=== PATIENT | female | born 1975 | race African-American/Black ===

== ENCOUNTER 2016-05-18 10:54 | Emergency (ER) | payer OTHER ==
[~2016-05-18] VITALS: Ht 154.9 cm; Wt 72.6 kg
[~2016-05-18 10:54] MED LIST: BACTRIM DS 8001 TAB PO; KETOROLAC TROME10 M1 PO; PYRIDIUM100 MG PO; ZOFRAN4 M2 PO; ZYRTEC10 M3 PO
[2016-05-18 12:38] LABS: ABSOLUTE BASOPHIL COUNT 0 /CUMM (0.0-0.2); ABSOLUTE EOSINOPHIL COUNT 0 /CUMM (0.0-0.7); ABSOLUTE GRANULOCYTE CT 16.5 /CUMM (1.4-6.5); ABSOLUTE LYMPH COUNT 1.4 /CUMM (1.2-3.4); ABSOLUTE MONOCYTE COUNT 0.5 /CUMM (0.10-0.60); BASOPHIL % 0.1 % (0.0-2.0); EOSINOPHIL % 0 % (0-5); GRANULOCYTE % 89.6 % (42.2-75.2); HEMATOCRIT 42.2 % (37-47); MEAN CORPUSCULAR HGB 30.5 PG (27.0-31.0); MEAN CORPUSCULAR HGB CONC 33.5 G/DL (33.0-37.0); MEAN CORPUSCULAR VOLUME 91.2 FL (81.0-99.0); MEAN PLATELET VOLUME 14.4 FL (7.4-10.4); PLATELET COUNT 226 /CUMM (130-400); RBC DISTRIBUTION WIDTH 13.1 % (11.5-14.5); RED BLOOD CELL CT 4.62 /CUMM (4.20-5.40); WHITE BLOOD CELL COUNT 18.5 /CUMM (4.8-10.8)
--- NOTE | 2016-05-18 15:15 | ED GI/GU/ABDOMINAL COMPLAINT ---
History of Present Illness General Chief Complaint: Female Urogenital Problems Stated Complaint: MISCARRIAGE Source: patient, family Exam Limitations: no limitations Vital Signs & Intake/Output Vital Signs & Intake/Output Vital Signs Date Time Temp Pulse Resp B/P Pulse O2 O2 Flow FiO2 Ox Delivery Rate 05/18 1354 99.4 68 16 121/69 100 Room Air 05/18 1101 98.1 98 18 138/74 100 Room Air Allergies Coded Allergies: oxycodone (VOMITING 09/29/15) Reconcile Medications Cetirizine HCl (Zyrtec) 10 MG TABLET 1 TAB PO DAILY ALLERGIES (Reported) Ketorolac Tromethamine 10 MG TABLET 1 TAB PO TID PRN HEADACHE Ondansetron (Zofran Odt) 4 MG TAB.RAPDIS 1 TAB SL TID PRN nausea/vomiting Ondansetron HCl (Zofran) 4 MG TABLET 1 TAB PO Q6-8P PRN NAUSEA Triage Note: 41 YEAR OLD FEMALE TO [facility] FROM HER HOME WITH COMPLAINTS OF ABD CRAMPING. PT WAS 10 WEEKS AND FOUND OUT YESTERDAY THAT SHE MISCARRIED AT ABOUT 7 WEEKS, WAS PRESCRIBED MISOPROSTOL AND STARTED WITH ABD PAIN AND CRAMPING AROUND 0200 THIS AM, STATES THAT PAIN HAS BEEN INCREASING AND THAT SHE HAS REALLY NOT BLED ALOT Triage Nurses Notes Reviewed? yes ? y Is pt currently ? No HPI: Ms. Rasmussen is a 41 yo f with no significant past medical history presenting to the emergency department for lower abdominal pain. Patient states she is 10 weeks and went to her CRANE SERVICE TECHNICIAN yesterday for abdominal cramping. Was told that she had no movements or heartbeat and likely she miscarried approximately 2-3 weeks ago. Patient was given misoprostal 4 tablets which she inserted into her vaginal canal around 11 PM last night. Around 2 AM the patient woke up with severe lower abdominal cramping. She denies any fever or chills. She endorses nausea and vomiting. No diarrhea. She says this feels like a very bad menstrual cycle. Patient endorses mild vaginal spotting. She is not told she would be having any pain or bleeding. She didn't know what to expect. Patient's previous was an ectopic . This was not related to an feature fertilization, both pregnancies were through natural intercourse. (ROLA BLAKELY,LES) Past History Travel History Traveled to [place] past 21 day No Medical History Any Pertinent Medical History? see below for history Neurological: NONE EENT: NONE Cardiovascular: NONE Respiratory: NONE Gastrointestinal: NONE Hepatic: NONE Renal: NONE Musculoskeletal: NONE Psychiatric: NONE Endocrine: NONE Blood Disorders: NONE Cancer(s): NONE MANAGER SOCIAL MEDIA/Reproductive: NONE Surgical History Surgical History: non-contributory Psychosocial History What is your primary language Citizen [place] Creole Tobacco Use: Never used ETOH Use: denies use Illicit Drug Use: denies illicit drug use Family History Hx Contributory? No (LES CANELA MD) Review of Systems Review of Systems Constitutional: Reports: see HPI. EENTM: Reports: no symptoms. Respiratory: Reports: no symptoms. Cardiovascular: Reports: no symptoms. GI: Reports: no symptoms, abdominal pain, nausea, vomiting. Genitourinary: Reports: pain. Musculoskeletal: Reports: no symptoms. Skin: Reports: no symptoms. Neurological/Psychological: Reports: no symptoms. Hematologic/Endocrine: Reports: no symptoms. Immunologic/Allergic: Reports: no symptoms. All Other Systems: Reviewed and Negative (LES CANELA MD) Physical Exam Physical Exam Gastrointestinal: soft, non-tender Comments: Well-developed well-nourished person in no acute distress HEENT: Normal EENT exam; PERRL, EOMI, no nystagmus. HEAD is atraumatic. moist mucous membranes. Neck: Supple, no lymphadenopathy, normal range of motion without pain or tenderness Back: Nontender, no CVA tenderness. Full range of motion Cardiovascular: Regular rate and rhythms no murmurs rubs or gallops, normal JVP Respiratory: Chest nontender.There were no bony deformities, no asymmetry. No respiratory distress. Patient speaking in full complete sentences. Breath sounds clear to auscultation bilaterally: NO W/R/R Abdomen: Tender in suprapubic region. Soft, nondistended, no appreciable organomegaly. Normal bowel sounds. No rebound/guarding, No appreciable enlargement of the abdominal aorta, No ascites. : Minimally open cervical os. Minimal bleeding in vaginal canal. visualized 3 out of 4 pills. Extremity: No edema, full range of motion of extremities, normal and equal pulses bilaterally, 5 out of 5 strength noted to bilateral upper and lower extremities Neuro: Alert oriented x3, motor sensory normal, cranial nerves II through XII grossly intact. There were no obvious focal neurologic abnormalities. Skin: No appreciable rash on exposed skin, skin is warm and dry. Psych: Mood and affect is normal, memory and judgment is normal. Core Measures ACS in differential dx? No Severe Sepsis Present: No Septic Shock Present: No (ROLA BLAKELY,LES) Progress Differential Diagnosis: gastritis, intrauterine , kidney stone, threatened AB, UTI/pyelo Plan of Care: Orders Procedure Date/time Status CULTURE,URINE 05/18 1316 Active URINALYSIS 05/18 1316 Complete COMPREHENSIVE METABOLIC PANEL 05/18 121 Complete CBC WITHOUT DIFFERENTIAL 05/18 121 Complete Laboratory Tests 05/18/16 1329: Anion Gap 12, Estimated GFR > 60, BUN/Creatinine Ratio 10.0, Glucose 101 H, Calcium 9.4, Total Bilirubin 0.7, AST 19, ALT 34, Alkaline Phosphatase 47, Total Protein 7.2, Albumin 4.3, Globulin 2.9, Albumin/Globulin Ratio 1.5, Urine Color YEL, Urine Clarity CLEAR, Urine pH 8.0, Ur Specific Bradford 1.015, Urine Protein NEG, Urine Ketones 15 H, Urine Nitrite NEG, Urine Bilirubin NEG, Urine Urobilinogen 0.2, Ur Leukocyte Esterase NEG, Ur Microscopic SEDIMENT EXAMINED, Urine RBC 1-3, Urine WBC RARE, Ur Epithelial Cells FEW, Urine Hemoglobin SMALL H, Urine Glucose NEG 05/18/16 1220: CBC w Diff MAN DIFF ORDERED, RBC 4.62, MCV 91.2, MCH 30.5, RDW 13.1, MPV 14.4 H , Gran % 89.6 H, Lymphocytes % 7.5 L, Monocytes % 2.8, Eosinophils % 0, Basophils % 0.1, Absolute Granulocytes 16.5 H, Absolute Lymphocytes 1.4, Absolute Monocytes 0.5, Absolute Eosinophils 0, Absolute Basophils 0, Platelet Estimate ADEQUATE, Normocytic RBCs VERIFIED, Normochromic RBCs VERIFIED, PUBS MCHC 33.5 Microbiology 05/18 1329 URINE ROUT: Urine Culture - RECD She is relatively well-appearing. Complaining of severe abdominal cramping and suprapubic region. The patient had confirmed IUP with her [facility] SERVICE TECHNICIAN. No heart tones noted. Patient given all this, this is an inevitable and already placed misoprostal. Likely nausea and abd cramp secondary to meds. Initially while being seen, patient was quite nauseated and actually vomited. Given Reglan and IV bolus with significant improvement. Patient also given some Toradol for the pain. exam + for minimally open cervical OS. Patient tolerating by mouth without difficulty. Ambulating ED without issues. Obtain UA to assess for possible UTI. No evidence of UTI. We'll discharge home with instructions to use Tylenol Motrin for the pain as well as IV fluids for hydration. Patient will follow up with her OB in 1-2 days. Return precautions should she start to bleed significantly. (LSE CANELA MD) Initial ED EKG: none (LES CANELA MD) Departure Departure Time of Disposition: 1526 Disposition: HOME OR SELF CARE Condition: Stable Clinical Impression Primary Impression: Inevitable Referrals: BRET VIZCAINO MD (PCP/Family) Additional Instructions: Please make sure he use Tylenol or Motrin for pain every 6 hours. If you have significant bleeding (soaking through more than 1 pad an hour) return to the emergency department for evaluation. A well-hydrated with plenty of fluids such as water and Gatorade. He can also use and vin alyssa. Try not to eat a significant amount of food as you might still be nauseated. He had been given a prescription today for an antinausea medicine which she can use every 8 hours as needed. Q have any other issues he can return to the ED for evaluation or follow up with your CRANE SERVICE TECHNICIAN in 1-2 days. Departure Forms: Customer Survey General Discharge Information Prescriptions: Current Visit Scripts Ondansetron (Zofran Odt) 1 TAB SL TID PRN nausea/vomiting #15 TAB (LES CANELA MD) PA/MEDICAL PATHOLOGY TEACHER Co-Sign Statement Statement: ED Attending supervision documentation- [] I saw and evaluated the patient. I have also reviewed all the pertinent lab results and diagnostic results. I agree with the findings and the plan of care as documented in the PA's/MEDICAL PATHOLOGY TEACHER's documentation. [X] I have reviewed the ED Record and agree with the PA's/MEDICAL PATHOLOGY TEACHER's documentation. [] Additions or exceptions (if any) to the PAs/MEDICAL PATHOLOGY TEACHER's note and plan are summarized below: [] (CRESENCIO SPENCE DO
[2016-05-18] MEDS ORDERED: ZOFRAN ODT4 M1 SL (15:29)
[2016-05-18 15:35] VITALS: BP 122/73
== END 2016-05-18 15:40 ==
LOC: ERH 10:54
PROVIDERS: Emergency Medicine
DX: O03.9 Complete or unspecified spontaneous abortion without complication (principal)
CPT/HCPCS: 81001; 87086; 87147; 96374; 96375; J1885; J2765